=== PATIENT | female | born 1995 | race African-American/Black ===

== ENCOUNTER 2017-01-18 14:25 | Emergency (ER) | payer OTHER ==
[~2017-01-18] VITALS: Ht 157.5 cm; Wt 70.0 kg
[2017-01-18 14:26] VITALS: BP 112/73; PULSE 96; RESP 16; TEMP 98.2; O2SAT 100
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
[2017-01-18] MEDS ORDERED: IBUPROFEN 800 MG TAB PO ONE (15:00)
[2017-01-18] MEDS ORDERED: METHOCARBAMOL 500 MG TAB PO ONE (15:00)
[2017-01-18] MEDS ORDERED: ROBA500T PO (15:21)
[2017-01-18] MEDS ORDERED: IBUP800T23 PO (15:21)
== END 2017-01-18 15:45 | disposition home or self-care (01) ==
LOC: NEPB 14:25
DX: S16.1XXA Strain of muscle, fascia and tendon at neck level, initial encounter (principal); M25.511 Pain in right shoulder; V49.40XA Driver injured in collision with unspecified motor vehicles in traffic accident, initial encounter; Y92.410 Unspecified street and highway as the place of occurrence of the external cause
CPT/HCPCS: 99284

== ENCOUNTER 2017-06-01 15:25 | Emergency (ER) | payer OTHER ==
[~2017-06-01] VITALS: Ht 157.5 cm; Wt 70.0 kg
[~2017-06-01 15:25] MED LIST: IBUP800T23 PO; ROBA500T PO
[2017-06-01 15:28] VITALS: BP 103/70; PULSE 71; RESP 16; TEMP 98.1; O2SAT 99
--- NOTE | 2017-06-01 15:32 | PD ---
Physical Exam Date Seen by Provider: Jun 01, 2017 Time Seen by Provider: 15:31 Narrative 22 yo female here for N/V/D. Has had it for 4 days. Vomiting but no blood. No chest pain. No sick contacts. No recent travel. Nothing makes it better. Vitals are stable in triage. Awaiting bed placement. Data Data Last Documented VS Vital Signs Date Time Temp Pulse Resp B/P Pulse Ox O2 Delivery O2 Flow Rate FiO2 06/01/17 15:28 98.1 71 16 103/70 99 MDM Medical Record Reviewed: Yes Supervised Visit with LORI: Yosvany Luther Jun 01, 2017 15:32
--- NOTE | 2017-06-01 15:44 | PD ---
HPI Chief Complaint: Cold / Flu Symptoms Time Seen by Provider: 15:35 Travel History International Travel<30 days: No Contact w/Intl Traveler<30days: No Traveled to known affect area: No History of Present Illness HPI 22-year-old female presents emergency department for evaluation of sore throat, cough, vomiting 4 days. Patient reports she was at work this morning and had one episode of vomiting after a prolonged period of coughing. Her boss sent her home from work instructing her she needed to be evaluated. Patient reports she has several nieces at home with similar URI type symptoms. She denies fever /chills, headache, chest pain, abdominal pain, diarrhea. She reports she only had one episode of vomiting today. [facility] Past Medical History Medical History: Denies Significant Hx Hx Anticoagulant Therapy: No Cardiovascular Problems: No Chemotherapy: No Cerebrovascular Accident: No Diabetes: No Diminished Hearing: No Respiratory: No Immunizations Current: Yes ?: Not LMP: 05/12/17 : 1 Para: 1 Past Surgical History Hysterectomy: No Social History Alcohol Use: No Tobacco Use: No Substance Use: No Allergies-Medications (Allergen,Severity, Reaction): Coded Allergies: Penicillin (Verified Allergy, Severe, THROAT SWELLING, 01/18/17) Reported Meds & Prescriptions Reported Meds & Active Scripts Active No Active Prescriptions or Reported Medications Review of Systems Except as stated in HPI: all other systems reviewed are Neg General / Constitutional: No: Fever Eyes: No: Visual changes HENT: Positive: Sore Throat, Rhinitis, No: Headaches Cardiovascular: No: Chest Pain or Discomfort Respiratory: Positive: Cough Gastrointestinal: Positive: Vomiting Physical Exam Narrative GENERAL: Alert, well-appearing female in no acute distress. Resting comfortably on stretcher. SKIN: Focused skin assessment warm/dry. HEAD: Atraumatic. Normocephalic. EYES: Pupils equal and round. No scleral icterus. No injection or drainage. ENT: No nasal bleeding or discharge. Mucous membranes pink and moist. NECK: Trachea midline. No JVD. CARDIOVASCULAR: Regular rate and rhythm. No murmur appreciated. RESPIRATORY: No accessory muscle use. Clear to auscultation. Breath sounds equal bilaterally. GASTROINTESTINAL: Abdomen soft, non-tender, nondistended. Hepatic and splenic margins not palpable. MUSCULOSKELETAL: No obvious deformities. No clubbing. No cyanosis. No edema. NEUROLOGICAL: Awake and alert. No obvious cranial nerve deficits. Motor grossly within normal limits. Normal speech. PSYCHIATRIC: Appropriate mood and affect; insight and judgment normal. Data Data Last Documented VS Vital Signs Date Time Temp Pulse Resp B/P Pulse Ox O2 Delivery O2 Flow Rate FiO2 06/01/17 15:28 98.1 71 16 103/70 99 MDM Medical Decision Making Medical Screen Exam Complete: Yes Emergency Medical Condition: Yes Differential Diagnosis Viral syndrome, URI, other Narrative Course 22-year-old female with chief complaint of sore throat and cough. Patient had one episode of vomiting today while at work after having a prolonged coughing. Her boss sent her home and she presents to emergency department for work note. She is well-appearing, well-hydrated, drinking in the room. Her physical exam is benign. She has mild pharyngeal erythema, lung sounds are clear. Her abdomen is soft and nontender. She reports multiple nieces at home with similar symptoms. She likely has viral illness. She was instructed to stay well hydrated by drinking plenty of fluids and eat a bland diet. Return precautions discussed. Patient agrees to plan Diagnosis Primary Impression: Viral illness Referrals: Primary Care Physician Departure Forms: Tests/Procedures, Work Release Enter return to work date: Jun 04, 2017 Additional Instructions: Take [id number] Motrin [id number] milligrams by mouth every 6-8 hours as needed for pain. Stable hydrated by drinking plenty of fluids. Follow-up with her primary care doctor. Return to emergency department if he developed new or worsening symptoms. Scripts No Active Prescriptions or Reported Meds Disposition: 01 DISCHARGE HOME Condition: Stable Tg Weeks Jun 01, 2017 15:44
== END 2017-06-01 16:16 | disposition home or self-care (01) ==
LOC: NEPD 15:25
DX: B34.9 Viral infection, unspecified (principal); Z88.0 Allergy status to penicillin
CPT/HCPCS: 99282